=== PATIENT | male | born 1950 | race Caucasian/White ===

== ENCOUNTER 2017-01-21 14:21 | Day surgery (SDC) | payer BC, OTHER ==
[~2017-01-21 14:21] MED LIST: CO Q100C9 PO; EZET10 PO; HYDR-3111 PO; LEVO50IN PO; LISI-587 PO; METO50TA PO; PLAV75TA PO; ROSU40 PO
[2017-01-21 14:42] VITALS: BP 190/72; PULSE 71; RESP 20; TEMP 97.1; O2SAT 96
[2017-01-21] MEDS ORDERED: PLAV75TA29 PO (14:43)
[2017-01-21] MEDS ORDERED: COQ-150C PO (14:44)
[2017-01-21] MEDS ORDERED: COUM10TA PO (14:45)
[2017-01-21] MEDS ORDERED: LISI20TA3 PO (14:45)
[2017-01-21] MEDS ORDERED: ROSU10 PO (14:46)
[2017-01-21] MEDS ORDERED: METO50TA PO (14:47)
[2017-01-21] MEDS ORDERED: LEVO25TA4 PO (14:48)
[2017-01-21] MEDS ORDERED: ROPIVACAINE 1% PF INJ 20 ML AMP ONE (15:47)
[2017-01-21] MEDS ORDERED: TRIAMCINOLONE ACETONIDE 40 MG/ML VIAL ONE (15:47)
[2017-01-21 16:31] VITALS: BP 164/78; PULSE 79; RESP 20; TEMP 97.2; O2SAT 98
[2017-01-21] MEDS ORDERED: IODIXANOL 320 MG/ML 50 ML VIAL (for RAD SPEC) ONE (16:33)
--- NOTE | 2017-01-21 17:59 | PD.RAD ---
Post Procedure Progress Note Pre Procedure Diagnosis: (1) Left hip pain Post Procedure Diagnosis: (1) Left hip pain Procedure Date: Jan 21, 2017 Supervising Radiologist: Neto Perez Proceduralist/Assist: Simran Meléndez RT(R)(CV), RT [place](R) Anesthesia: Local Plan of Activity Patient to Unit: [facility] Patient Condition: Good See PACS Report for procedural detail/treatment Spinal Procedure Findings: Left hip trochanteric bursal injection Neto Perez MD Jan 21, 2017 17:59
--- NOTE | 2017-01-21 19:47 | RADRPT ---
EXAM DATE/TIME: 01/21/2017 15:51 [facility] COMPARISON: No previous studies available for comparison. INDICATIONS : Patient with left hip pain in need of steroid injection. MEDICAL HISTORY : DVT, HTN, Grave's disease, Hypothyroidism, PE, Osteoarthritis, Lumbar disc disease SURGICAL HISTORY : Umbilical hernia repair, Tonsillectomy, Coronary stent ENCOUNTER: Subsequent ACUITY: 1 week PAIN SCORE: 10/10 LOCATION: Left hip FLUORO TIME: 9.7 minutes IMAGE SERIES: 2 CONTRAST: 3cc Visipaque (iodixanol) DEVICE: 22 gauge needle was placed into the left hip joint MEDICATIONS: 1.) 4 cc Lidocaine IA 2.) 4 cc ropivacaine (Naropin) IA 3.) 2 cc triamcinolone (Kenalog) IA RESPONSE: Pre procedure pain level was 10/10. Post procedure pain level was 0/10. PROCEDURE : The risks, benefits and alternatives to the procedure were explained and verbal and written consent w as obtained. The site was prepped in sterile fashion. Full sterile technique was used, including ca p, mask, sterile gloves and gown and a large sterile sheet. Hand hygiene and 2% chlorhexidine and/or betadine/alcohol prep was utilized per protocol for cutaneous antisepsis. The skin and subcutaneous tissues were infiltrated with local anesthetic solution. Under sterile conditions and using aseptic technique with fluoroscopic guidance the joint was punctur ed and positive contrast was injected to confirm intra-articular position. Following this, the presc ribed mixture of Kenalog and local anesthetics was injected. The patient tolerated the procedure wel l and there were no complications. CONCLUSION: Uncomplicated therapeutic injection performed under fluoroscopic guidance. Neto Perez MD on January 21, 2017 at 19:45 Board Certified Radiologist. This report was verified electronically.
== END 2017-01-21 17:10 | disposition home or self-care (01) ==
LOC: HROP 14:21 → HRIP 14:24 → HROP 17:10
PROVIDERS: ATTEND Family Medicine
DX: M25.552 Pain in left hip (principal); I10 Essential (primary) hypertension; E03.9 Hypothyroidism, unspecified; Z95.5 Presence of coronary angioplasty implant and graft; Z86.718 Personal history of other venous thrombosis and embolism
CPT/HCPCS: 20610; 77003; J2795; J3301; Q9967

== ENCOUNTER 2017-01-30 14:06 | Day surgery (SDC) | payer OTHER ==
[~2017-01-30 14:06] MED LIST changes: -CO Q100C9 PO; +COQ-150C PO; +COUM10TA PO; -EZET10 PO; -HYDR-3111 PO; +LEVO25TA4 PO; -LEVO50IN PO; -LISI-587 PO; +LISI20TA3 PO; -PLAV75TA PO; +PLAV75TA29 PO; +ROSU10 PO; -ROSU40 PO
[2017-01-30 14:25] VITALS: BP 167/98; PULSE 54; RESP 20; TEMP 98.6; O2SAT 98
[2017-01-30] MEDS ORDERED: TRIAMCINOLONE ACETONIDE 40 MG/ML VIAL ONE (15:25)
[2017-01-30] MEDS ORDERED: ROPIVACAINE 1% PF INJ 20 ML AMP ONE (15:25)
[2017-01-30] MEDS ORDERED: IOHEXOL 300 MG/ML 50 ML BTL (for RAD DIAG) ONE (16:14)
[2017-01-30 16:15] VITALS: BP 130/52; PULSE 54; RESP 20; O2SAT 93
--- NOTE | 2017-01-30 17:14 | RADRPT ---
EXAM DATE/TIME: 01/30/2017 16:28 [facility] COMPARISON: INJ MEDS HIP/KNEE/SHOULD W/FL, January 21, 2017, 15:51. INDICATIONS : Patient with as history of left hip pain. MEDICAL HISTORY : DVT HTN Grave's disease Hypothyroidism PE Osteoarthritis Lumbar disc disease SURGICAL HISTORY : Umbilical hernia repair Tonsillectomy Coronary stent ENCOUNTER: Subsequent ACUITY: 2 weeks PAIN SCORE: 6/10 LOCATION: Left Hip FLUORO TIME: 3.9 minutes IMAGE SERIES: 6 CONTRAST: 3cc Omnipaque (iohexol) 300 DEVICE: 22 gauge needle was placed into the left hip joint MEDICATIONS: 1.) 4 cc Lidocaine IA 2.) 4 cc ropivacaine (Naropin) IA 3.) 2 cc triamcinolone (Kenalog) IA RESPONSE: Pre procedure pain level was 6/10. Post procedure pain level was 0/10. PROCEDURE : The risks, benefits and alternatives to the procedure were explained and verbal and written consent w as obtained. The site was prepped in sterile fashion. Full sterile technique was used, including ca p, mask, sterile gloves and gown and a large sterile sheet. Hand hygiene and 2% chlorhexidine and/or betadine/alcohol prep was utilized per protocol for cutaneous antisepsis. The skin and subcutaneous tissues were infiltrated with local anesthetic solution. Under sterile conditions and using aseptic technique with fluoroscopic guidance the joint was punctur ed and positive contrast was injected to confirm intra-articular position. Following this, the presc ribed mixture of Kenalog and local anesthetics was injected. The patient tolerated the procedure wel l and there were no complications. CONCLUSION: Uncomplicated therapeutic injection performed under fluoroscopic guidance. Neto Perez MD on January 30, 2017 at 17:11 Board Certified Radiologist. This report was verified electronically.
--- NOTE | 2017-01-31 12:37 | PD.RAD ---
Post Procedure Progress Note Pre Procedure Diagnosis: (1) Left hip pain Post Procedure Diagnosis: (1) Left hip pain Procedure Date: Jan 31, 2017 Supervising Radiologist: Neto Perez Proceduralist/Assist: Lurdes Cast, RT(R), Kd Whitt RT(R) Anesthesia: Local Plan of Activity Patient to Unit: [facility] Patient Condition: Good See PACS Report for procedural detail/treatment Spinal Procedure Findings: Left hip tendinous and bursal injection. Preprocedural pain /10 post 3/ Neto Perez MD Jan 31, 2017 12:37
== END 2017-01-30 16:30 | disposition home or self-care (01) ==
LOC: HROP 14:06 → HRIP 14:08 → HROP 16:30
PROVIDERS: ATTEND Radiology Body Imaging
DX: M25.552 Pain in left hip (principal); E05.00 Thyrotoxicosis with diffuse goiter without thyrotoxic crisis or storm; E03.9 Hypothyroidism, unspecified; I10 Essential (primary) hypertension; Z86.718 Personal history of other venous thrombosis and embolism; Z95.5 Presence of coronary angioplasty implant and graft
CPT/HCPCS: 20610; J2795; J3301; Q9967; 77002